=== PATIENT | female | born 1940 | race Caucasian/White ===

== ENCOUNTER → 2023-08-25 07:34 | Outpatient (REF) | payer MEDICARE, OTHER, SELFPAY | LOC: RAD 07:34 | PROVIDERS: ATTENDING PHYSICIAN Internal Medicine; FAMILY PHYSICIAN Family Medicine | DX: C50.811 Malignant neoplasm of overlapping sites of right female breast (principal); M85.88 Other specified disorders of bone density and structure, other site; Z79.811 Long term (current) use of aromatase inhibitors; Z17.0 Estrogen receptor positive status [ER+] | CPT/HCPCS: 71260; 74177; 78306; A9503; Q9967 ==

== ENCOUNTER → 2023-11-24 12:05 | Outpatient (REF) | payer MEDICARE, OTHER, SELFPAY | LOC: WDC 12:05 | PROVIDERS: ATTENDING PHYSICIAN Nurse Practitioner Family | DX: C50.911 Malignant neoplasm of unspecified site of right female breast (principal); Z12.31 Encounter for screening mammogram for malignant neoplasm of breast | CPT/HCPCS: 77063; 77067 ==

== ENCOUNTER → 2024-11-25 13:19 | Outpatient (REF) | payer OTHER, SELFPAY | LOC: WDC 13:19 | PROVIDERS: ATTENDING PHYSICIAN Family Medicine | DX: M85.88 Other specified disorders of bone density and structure, other site (principal); Z79.811 Long term (current) use of aromatase inhibitors; Z12.31 Encounter for screening mammogram for malignant neoplasm of breast | CPT/HCPCS: 77063; 77067; 77080 ==